=== PATIENT | female | born 1945 | race Caucasian/White ===

== ENCOUNTER 2025-03-12 13:18 | Inpatient (IN) | payer MEDICARE, OTHER, SELFPAY ==
[2025-03-11 15:00] VITALS: BP 126/74
[2025-03-11 15:03] VITALS: BP 126/74
[2025-03-11 15:04] VITALS: BMI 17.4
--- NOTE | 2025-03-11 15:16 | ED.GENMED ---
History of Present Illness
General
Chief Complaint: Failure to Thrive
Source: patient and ambulance crew
Exam Limitations: altered mental status
Time Seen by Provider: 03/11/25 15:05
Nursing documentation reviewed up to this point in time: agreed with
History of Present Illness
History of Present Illness:
Note:
CHIEF COMPLAINT(S)
Altered mental status.
HISTORY OF PRESENT ILLNESS
The patient is an 79-year-old female who was brought into the emergency department for altered mental status. Upon evaluation, she appeared disoriented regarding the month but was aware of the year and her location. It was noted that the patient has
difficulty communicating effectively. T There have been no reported falls, coughing, or significant changes in appetite. Her current living situation or whether she requires assistance with daily activities was not clearly established during the
conversation.
The patient did not mention specific precipitating events or factors exacerbating her symptoms, and there was no clear mention of interventions or medications taken prior to her arrival in the emergency department.
PHYSICAL EXAM
General: Alert, confused about the current month but oriented to year and location. No acute distress.
Skin: Warm, dry.
Head: Normocephalic, atraumatic.
Neck: Supple, trachea midline.
Ears, Nose, and Throat: Oral mucosa moist.
Cardiovascular: Normal peripheral perfusion, No edema. S1/S2, no S3/4, tachycardia
Respiratory: Respirations are non-labored.
Gastrointestinal: Abdomen nondistended.
Back: Normal range of motion, Normal alignment.
Musculoskeletal: no edema or deformities noted.
Neurological: Alert and oriented to year and place, but not month. No focal neurological deficits observed.
Psychiatric: Cooperative, appropriate mood & affect.
PROBLEM LIST
Acute Problems:
- Altered mental status
PLAN
The patient is to be admitted for further evaluation of her altered mental status. Investigations such as laboratory tests, imaging studies, and possibly consultation with neurology may be required to elucidate the cause of her symptoms and guide
treatment.
DIFFERENTIAL DIAGNOSIS
The Differential Diagnosis includes, in no particular order and is not limited to:
1. Delirium
2. Dementia exacerbation
3. Cerebrovascular accident
4. Electrolyte imbalance
5. Infection (e.g., urinary tract infection, respiratory infection)
6. Medication side effects or interactions
7. Dehydration
8. Cardiac event
Note:
CARE-UPDATE
03/11/25 - 17:26
Urinalysis results suggest a UTI, and the patient is deemed unsafe for discharge home. IV Ceftriaxone initiated. Anticipate need for placement in a rehabilitation facility post-hospitalization.
Disposition:
SUMMARY OF ENCOUNTER
The patient, an 79-year-old female, presented to the emergency department with altered mental status. She was disoriented regarding the current month but was oriented to the year and location. A urinalysis indicated a urinary tract infection (UTI).
Given the altered mental status and suspected UTI, the patient was deemed unsafe for discharge and required admission for further evaluation and management.
DISPOSITION
Admit to hospitalists.
ASSESSMENT
The patient presents with altered mental status, likely attributable to a urinary tract infection, as well as suspected evidence of failure to thrive.
EMERGENCY TREATMENTS ADMINISTERED
Intravenous Ceftriaxone was initiated for the treatment of UTI.
PLAN
The patient will be admitted for further evaluation and management. This may include additional laboratory tests, imaging studies, and consultations with specialists such as neurology or orthopedics to further understand the cause of altered mental
status.
MEDICATION RECONCILIATION
Ceftriaxone IV initiated for UTI treatment.
MEDICAL DECISION MAKING
-Complexity of Data Reviewed:
Acute conditions affecting care include altered mental status, UTI, and possible failure to thrive. The differential diagnosis includes delirium, dementia exacerbation, cerebrovascular accident, electrolyte imbalance, infection, medication side
effects or interactions, dehydration, and cardiac event.
-Data:
Category 3
Discussion of management with hospitalists for further patient care.
DIAGNOSIS
- Urinary tract infection: ICD-10 N39.0
- Altered mental status: ICD-10 R41.82
- Failure to thrive in adult: ICD-10 R62.7
Phy Exam
Physical Exam
Physical Exam:
.
Course
Orders/Labs/Results
Orders:
Orders
03/11/25 14:59
EKG [Electrocardiogram (*1)] Urgent
Reason for Study: Tachycardia
EKG- Treatment ONCE
03/11/25 15:00
Straight cath- Treatment ONCE
03/11/25 15:06
CBC/With Diff [Complete Blood Count/With Diff] Urgent
CMP [Comprehensive Metabolic Panel] Urgent
Urinalysis Reflex To Culture Urgent
Date Specimen was Collected: 03/11/25
Time Specimen was Collected: 14:59
Urine Microscopic Reflex Cult Urgent
Urine Culture Urgent
YUNIOR Source: U
Specimen Description:
Date Specimen was Collected: 03/11/25
Time Specimen was Collected: 14:59
03/11/25 15:14
Cardiac Monitoring- Treatment ONCE
IV Insert/Care/Rem.- Treatment PRN
Pulse Ox/cont/shift [RESP] Stat
Quantity: 1
03/11/25 15:15
CT Head W/o Iv Contrast Urgent
Comment:
Reason For Exam: confusion
Abnormal Lab Results
03/11/25
15:06
RBC 3.83 L 10^6/uL
(4.20-5.40)
MCV 106.0 H fL
(81.0-99.0)
MCH 34.5 H pg
(27.0-31.0)
MCHC 32.5 L g/dL
(33.0-37.0)
RDW 15.9 H %
(11.5-14.5)
Absolute Neuts (auto) 8.2 H 10^3/uL
(1.4-6.5)
Absolute Lymphs (auto) 0.9 L 10^3/uL
(1.2-3.4)
Absolute Monos (auto) 0.8 H 10^3/uL
(0.1-0.6)
Neutrophils % 80.6 H %
(42.2-75.2)
Lymphocytes % 9.0 L %
(20.5-51.1)
Glucose 108 H mg/dl
(70-99)
Total Bilirubin 1.4 H mg/dl
(0.2-1.3)
Urine Ketones 3+ A
(Negative)
Ur Occult Blood Reflex 3+ A
(Negative)
Leukocyte Esterase Rfl 3+ A
(Negative)
Urine Albumin (Reflex) 3+ A
(Neg - Trace)
03/11/25 15:06
03/11/25 15:06
Vital Signs
Initial and Last Documented VS:
Initial Vital Signs
Pulse Resp Pulse Ox
107 17 97
03/11/25 14:59 03/11/25 14:59 03/11/25 14:59
Last Documented Vital Signs
Temp Pulse Resp BP Pulse Ox
98.4 F 102 21 126/74 97
03/11/25 15:00 03/11/25 16:00 03/11/25 15:00 03/11/25 15:03 03/11/25 16:00
*Pulse Oximetry
SaO2: 97
Oxygen Mode of Delivery: Room air
Patient hypoxic: no
*Critical Care Note
Total Time (30-74mins, 75-104mins- exclusive of procedures): Not Applicable
ED Attending Note
-
Portions of this chart may have been created with voice recognition software.� Occasional wrong word or��sound alike� substitutions may have occurred due to the inherent limitations of voice recognition software.
Discharge Plan
Departure
Patient Disposition: Admit
Date of Disposition: 03/11/25
Time of Disposition: 17:25
Admit to: Med/Surg
Presentation/result/management discussed w/ accepting MD/DO: Hospitalist
Condition: Fair
Discharge Problem:
Acute UTI (urinary tract infection), Acute alteration in mental status, Failure to thrive in adult
Prescriptions:
No Action
levothyroxine 75 mcg tablet
75 mcg PO DAILY
rosuvastatin 5 mg tablet
5 mg PO DAILY
docusate sodium 100 mg Capsule
100 mg PO BID Qty: 1 0RF
polyethylene glycol 3350 [HealthyLax] 17 gram Powder In Packet
17 g PO DAILY Qty: 1 0RF
metoprolol succinate [Toprol XL] 25 mg tablet extended release 24 hr
25 mg PO DAILY Qty: 1 0RF
Rx Instructions:
new medication
Referrals:
Blanco Noriega MD [Family Provider, Family Practice]
Interventions
Interventions:
*Risk Screen - Suicide Last Done: 03/11/25 14:55
*General Assessment Last Done: 03/11/25 14:55
*Neglect/Abuse Screening Last Done: 03/11/25 14:55
*ED- Fall Risk Assessment Last Done: 03/11/25 14:55
*ED COVID-19 Vaccine History Last Done: 03/11/25 14:55
*ED Influenza Vaccine History Last Done: 03/11/25 14:55
Discharge Date and Time
Print Language: FRISIAN
[2025-03-11 15:44] LABS: ALT (SGPT) 18 U/L (0-35); AST (SGOT) 22 U/L (14-36); Albumin 4.0 g/dl (3.5-5.0); Alkaline Phosphatase 63 U/L (38-126); Blood Urea Nitrogen 17 mg/dl (7-17); Calcium 9.0 mg/dl (8.4-10.2); Carbon Dioxide 24 mmol/L (22-30); Chloride 104 mmol/L (98-107); Estimated Creatinine Clearance 42 ml/min; Glucose 108 mg/dl (70-99); Potassium 4.3 mmol/L (3.5-5.1); Sodium 138 mmol/L (135-145); Total Protein 6.8 g/dl (6.3-8.2); eGFR > 60.00
--- NOTE | 2025-03-11 15:51 | EDCM ---
Addendum entered by Tamika Spring 03/11/25 16:16:
I met with pt bedside in ED. She lives alone in [address]. First floor half bath, full flight to second floor bedroom and full bath.
Pt states she is independent in ADLs, personal care and ambulation. Denies assistive devices. She told me she prepares meals and her sister in law sends her food.
I spoke to pt's brother Scot, he and his live in [place]. Per Scot, pt was admitted 2 years ago and was sent to [facility] after discharge for STR. Was discharged home with private pay caregivers but pt fired them. Per Scot, his has
food delivered to the house, pt does not prepare food.
He was notified by [facility] that they do not feel she is safe at home alone.
He is hoping she will qualify for STR at [facility] again and hope to transition to LTC or Memory Care.
He is aware CM will continue to follow and will reach out as needed.
Original Note:
I received a phone call from Pepper from [facility], they did a home visit today and sent pt to hospital. Home conditions were poor and they do not feel she is safe to be home alone. They do have POA documents and capacity evaluation that
states she does not have capacity to make decisions. Her brother Terry is POA, he is in [place]. [facility] did notify him that pt was sent to ED. Will discuss with Dr Zabala.
[2025-03-11 16:04] LABS: Hematocrit 40.6 % (37.0-47.0); Hemoglobin 13.2 g/dL (12.0-16.0); Mean Corp Hgb Conc. 32.5 g/dL (33.0-37.0); Mean Corpuscular Volume 106.0 fL (81.0-99.0); Nucleated Red Blood Cells % 0 %; Platelet Count 240 10^3/uL (130-400); Red Cell Dist. Width 15.9 % (11.5-14.5)
[2025-03-11 16:21] LABS: Urine Character Slightly Cloudy (Clear)
--- NOTE | 2025-03-11 17:35 | HPS.HSE ---
Family Physician
-
Family Physician: Blanco Noriega
Chief Complaint
-
confusion
History of Present Illness
Ms. Ebony Madison is a 79 yo woman with hx hypothyroidism, HLD, presents to the ER after [facility] checked in on patient who was not answering calls.
Patient was admitted in December 2022 for failure to thrive, and poor oral intake with concern for cognitive impairment.
Patient isn't able to give significant history. She can't remember what was going on at home or what medications she takes. Per RN, she is having some incontinence which is new for her.
Medical History
Past Medical History
Past Medical History: Reports Hypercholesterolemia and Other
Additional Past Medical History:
Hypothyroidism
Past Surgical History: Reports Other
Additional Past Surgical History:
Rhinoplasty
Social History
Tobacco: Non-smoker
Alcohol: None
Family History
Family History: Not pertinent
Allergies / Home Medications
Allergies reflects when Allergies were last updated in [email or web address].
Home Medications with original date entered in [email or web address]
Allergy/Medication List:
*unable to confirm med rec
Review of Systems
-
History Source: Patient
A 12 point ROS was completed and negative except as noted: Yes
Physical Exam
Vital Signs
Vital Signs
Temp Pulse Resp BP Pulse Ox
98.4 F 102 21 126/74 97
03/11/25 15:00 03/11/25 16:00 03/11/25 15:00 03/11/25 15:03 03/11/25 16:00
Physical Exam
General: No Apparent Distress and Other (frail appearing)
HEENT: PERRLA
Respiratory: Clear; No Wheezes
Cardiac: S1/S2 and Regular Rhythm
GI: Soft, Non Tender and Non Distended
Musculoskeletal: No Edema
Skin: Warm and Dry; No Rash
Neuro: AO x 3
Psych: Calm
Laboratory Results
-
03/11/25 15:06
03/11/25 15:06
Laboratory Results
Total Bilirubin 1.4 mg/dl (0.2-1.3) H 03/11/25 15:06
AST 22 U/L (14-36) 03/11/25 15:06
ALT 18 U/L (0-35) 03/11/25 15:06
Alkaline Phosphatase 63 U/L (38-126) 03/11/25 15:06
Data Reviewed
-
Diagnostic Radiology: Report Reviewed by me
Lab Data: Labs Reviewed by me
Impression/Plan
-
Ms. Ebony Madison is a 79 yo woman with hx hypothyroidism, HLD, presents to the ER after area agency of [employer] checked in on patient who was not answering calls.
Triage VS: T 98.4, P 107, RR 17, SpO2 97%
LABS: WBC 10.2, Hg 13.2, PLT 240, Na 138, K+ 4.3, Cl 104, Cr 0.7, Glucose 108
UA with 3 + leuk esterase, 60-[address]
IMPRESSION:
1. No CT evidence for acute intracranial hemorrhage or transcortical infarct.
2. Moderate bilateral temporal lobe volume loss consistent with a chronic neurodegenerative disease (probably Alzheimer's dementia).
3. 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
4. 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
5. Chronic left maxillary sinusitis.
MAR: IV Ceftriaxone
TME 2/2 UTI
-patient with confusion and new urinary symptoms with UA showing inflammation
-admit for treatment of UTI
-IV Ceftriaxone
-follow up urine culture
Hx Cognitive Decline with imaging suggestive of Alzheimer's dementia
-patient lives alone, brother lives 6 hours away
-PT Eval
-CM consult
Hypothyroidism
Hyperlipidemia
unable to complete med rec. Patient states she takes all of her medications int he morning. Med rec to be completed by pharmacist in AM.
DVT PPx SCD
FULL CODE
[2025-03-11 17:41] LABS: Urine Squamous Cell 0-2 /LPF (Few)
[2025-03-11 17:42] LABS: Urine White Cell 60-70 /HPF (0-5)
[2025-03-11] MEDS: ROCEPHIN 1000 MG IV (17:51)
[2025-03-11 19:00] LABS: COVID-19 Antigen Negative (Negative)
[2025-03-11 20:38] VITALS: BP 140/84; BMI 15.6
[2025-03-11 23:31] VITALS: BP 122/72
[2025-03-12 07:15] VITALS: BP 126/78
[2025-03-12 07:45] LABS: Hematocrit 38.9 % (37.0-47.0); Hemoglobin 12.7 g/dL (12.0-16.0); Mean Corp Hgb Conc. 32.6 g/dL (33.0-37.0); Mean Corpuscular Volume 106.6 fL (81.0-99.0); Platelet Count 239 10^3/uL (130-400); Red Cell Dist. Width 15.9 % (11.5-14.5)
[2025-03-12 08:15] LABS: Blood Urea Nitrogen 16 mg/dl (7-17); Calcium 9.3 mg/dl (8.4-10.2); Carbon Dioxide 26 mmol/L (22-30); Chloride 104 mmol/L (98-107); Estimated Creatinine Clearance 39 ml/min; Glucose 112 mg/dl (70-99); Magnesium 2.1 mg/dl (1.6-2.3); Potassium 4.7 mmol/L (3.5-5.1); Sodium 139 mmol/L (135-145); eGFR > 60.00
[2025-03-12 10:35] VITALS: BP 120/78; PULSE 92; O2SAT 96
[2025-03-12 10:52] VITALS: BP 120/78; PULSE 91; O2SAT 97
[2025-03-12 11:02] VITALS: BMI 15.6
--- NOTE | 2025-03-12 11:33 | W.PN.HOSP.TC ---
Addendum entered and electronically signed by Keny Roberts MD 03/12/25 13:04:
Patient brother was updated over the phone in details.
Original Note:
Today's Communication/Plan
-
IV antibiotics
PT OT eval
Spine imaging
Hip imaging
Eventual placement
Assessment / Plan
Assessment / Plan
General: No Apparent Distress and Other (frail appearing)
HEENT: PERRLA
Respiratory: Clear; No Wheezes
Cardiac: S1/S2 and Regular Rhythm
GI: Soft, Non Tender and Non Distended
Musculoskeletal: No Edema
Skin: Warm and Dry; No Rash
Neuro: AO x 3
Psych: Calm
TME 2/2 UTI
-patient with confusion and new urinary symptoms with UA showing inflammation
-IV Ceftriaxone
-follow up urine culture
Hx Cognitive Decline with imaging suggestive of Alzheimer's dementia
-patient lives alone, brother lives 6 hours away
-OT eval BCAT score 14
-CM consult
Mechanical fall
- Check thoracic and lumbar spine.
-Check bilateral hip and pelvic x-ray
Hypothyroidism
-check TSH
Hyperlipidemia
Suspected protein caloric malnutrition likely chronic
- Nutrition eval. Check magnesium, phosphorus, B12 and folic acid and thyroid level
DVT PPx heparin subcu
FULL CODE
Anticipated Discharge: > 48 hours
Subjective/Interval History
-
Date of Service: March 12, 2025
Patient knew she was in the outside hospital. However unclear about timeline
Denied any pain to me
However after working with physical therapy patient was stating of back pain after a fall
Objective Data
-
Labs:
Laboratory Results
03/12/25
06:58
WBC 7.8
Hgb 12.7
Hct 38.9
Plt Count 239
Sodium 139
Potassium 4.7
Chloride 104
Carbon Dioxide 26
BUN 16
Creatinine 0.7
Glucose 112 H
Calcium 9.3
Vital Signs:
Vital Signs
Temp Pulse Resp BP Pulse Ox
98.5 F 89 16 126/78 97
03/12/25 07:15 03/12/25 07:15 03/12/25 07:15 03/12/25 07:15 03/12/25 08:30
I&O
03/11/25 03/12/25 03/13/25
06:59 06:59 06:59
Intake Total 0 / 0
Balance 0 / 0
Data Reviewed
-
Total Time Spent with Patient (in minutes): 55
--- NOTE | 2025-03-12 12:49 | CM ---
Addendum entered by Shahrzad Samayoa 03/12/25 14:01:
Status Changed from OBS to Inpatient. Brother contacted and reviewed the IMM with CM,; placed in pt chart.
Original Note:
DARLENE presented to the son over the phone. He had questions, which were answered to his satisfaction. Signed copy placed in chart. Brother lives in [place], [place]. DARLENE emailed to [email or web address]
Pt is reported to have intermittent periods of forgetfulness.
PT rec SNF, brother made aware. Brother provided [facility] for referral. CM explained that we would like 3-5 choices so discharge can be completed in a timely manner when stable. Referral made
Plan: Snf when stable
[2025-03-12 15:30] VITALS: BP 123/77
[2025-03-12] MEDS: ROCEPHIN 1000 MG IV (16:26)
[2025-03-12] MEDS: STERILE WATER FOR INJECTION 10 ML IV (16:26)
[2025-03-12] MEDS: HEPARIN SC (20:41)
[2025-03-12 23:02] VITALS: BP 116/67
[2025-03-13 07:00] VITALS: BP 109/70
[2025-03-13 07:16] LABS: Hematocrit 39.3 % (37.0-47.0); Hemoglobin 12.3 g/dL (12.0-16.0); Mean Corp Hgb Conc. 31.3 g/dL (33.0-37.0); Mean Corpuscular Volume 106.2 fL (81.0-99.0); Nucleated Red Blood Cells % 0 %; Platelet Count 237 10^3/uL (130-400); Red Cell Dist. Width 16.2 % (11.5-14.5)
[2025-03-13 07:31] LABS: Blood Urea Nitrogen 16 mg/dl (7-17); Calcium 9.5 mg/dl (8.4-10.2); Carbon Dioxide 30 mmol/L (22-30); Chloride 105 mmol/L (98-107); Estimated Creatinine Clearance 34 ml/min; Glucose 108 mg/dl (70-99); Magnesium 2.2 mg/dl (1.6-2.3); Potassium 4.3 mmol/L (3.5-5.1); Sodium 137 mmol/L (135-145); eGFR > 60.00
[2025-03-13 08:38] LABS: Folate 12.7 ng/ml (2.76-20); Vitamin B12 692 pg/ml (239-931)
[2025-03-13] MEDS: TYLENOL 650 MG PO (09:12)
[2025-03-13] MEDS: HEPARIN SC ×2 (09:13→19:58)
--- NOTE | 2025-03-13 11:04 | CM ---
CM spoke with patient's primary contact/brother, Terry Nation, via phone. SNF preference is [facility]; referral was accepted.
Plan: Discharge to SNF when medically stable
--- NOTE | 2025-03-13 11:55 | W.PN.HOSP.TC ---
Today's Communication/Plan
-
Change antibiotics and monitor
Start Synthroid
Await placement
Assessment / Plan
Assessment / Plan
General: No Apparent Distress and Other (frail appearing)
HEENT: PERRLA
Respiratory: Clear; No Wheezes
Cardiac: S1/S2 and Regular Rhythm
GI: Soft, Non Tender and Non Distended
Musculoskeletal: No Edema
Skin: Warm and Dry; No Rash
Neuro: AO x 3
Psych: Calm
TME 2/2 Pseudomonas urinary tract infection
-patient with confusion and new urinary symptoms with UA showing inflammation
- Identification and susceptibility noted. DC ceftriaxone start ciprofloxacin
-complete finite course
Hx Cognitive Decline with imaging suggestive of Alzheimer's dementia
-patient lives alone, brother lives 6 hours away
-OT eval BCAT score 14
-CM consult
Mechanical fall
-Chronic compression deformity T10 and age-indeterminate fracture T6
-Hip x-ray negative for fracture.
-Lumbar spine negative for fractures
Hypothyroidism
- Doubt patient was taking her medications. Patient with history of sinus tachycardia. TSH was extremely elevated. Start patient on Synthroid 50 mcg and repeat blood work 4 to 6 weeks as outpatient.
Hyperlipidemia
Suspected protein caloric malnutrition likely chronic
- Nutrition eval. mag, Phos, B12 and folate normal.
DVT PPx heparin subcu
FULL CODE
PT/OT rec SNF await placement
Anticipated Discharge: Within 24 hours
Subjective/Interval History
-
Date of Service: March 13, 2025
eating breakfast
states of back pain after working with PT
Objective Data
-
Labs:
Laboratory Results
03/13/25
06:04
WBC 5.5
Hgb 12.3
Hct 39.3
Plt Count 237
Sodium 137
Potassium 4.3
Chloride 105
Carbon Dioxide 30
BUN 16
Creatinine 0.8
Glucose 108 H
Calcium 9.5
Vital Signs:
Vital Signs
Temp Pulse Resp BP Pulse Ox
98.3 F 86 12 109/70 98
03/13/25 07:00 03/13/25 07:00 03/13/25 07:00 03/13/25 07:00 03/13/25 09:25
I&O
03/12/25 03/13/25 03/14/25
06:59 06:59 06:59
Intake Total 0 / 0 960 / 960 180 / 180
Balance 0 / 0 960 / 960 180 / 180
Data Reviewed
-
Total Time Spent with Patient (in minutes): 55
[2025-03-13] MEDS: CIPRO 500 MG PO ×2 (12:10→19:58)
[2025-03-13 15:00] VITALS: BP 105/71
[2025-03-13 23:53] VITALS: BP 146/89
[2025-03-14] MEDS: SYNTHROID 50 MCG PO (06:22)
[2025-03-14 07:00] VITALS: BP 90/61
[2025-03-14 07:16] LABS: Hematocrit 34.7 % (37.0-47.0); Hemoglobin 11.4 g/dL (12.0-16.0); Mean Corp Hgb Conc. 32.9 g/dL (33.0-37.0); Mean Corpuscular Volume 103.3 fL (81.0-99.0); Nucleated Red Blood Cells % 0 %; Platelet Count 231 10^3/uL (130-400); Red Cell Dist. Width 15.9 % (11.5-14.5)
[2025-03-14 07:30] LABS: Blood Urea Nitrogen 19 mg/dl (7-17); Calcium 9.4 mg/dl (8.4-10.2); Carbon Dioxide 26 mmol/L (22-30); Chloride 108 mmol/L (98-107); Estimated Creatinine Clearance 39 ml/min; Glucose 99 mg/dl (70-99); Potassium 4.5 mmol/L (3.5-5.1); Sodium 137 mmol/L (135-145); eGFR > 60.00
[2025-03-14 09:32] VITALS: BP 119/73
[2025-03-14] MEDS: CIPRO 500 MG PO ×2 (09:33→20:11)
[2025-03-14] MEDS: HEPARIN 5000 UNITS SC ×2 (09:36→20:11)
--- NOTE | 2025-03-14 11:10 | W.PN.HOSP.TC ---
Today's Communication/Plan
-
po abx
monitor BP
Bowel regimen if needed
start dispo to SNF
Assessment / Plan
Assessment / Plan
General: No Apparent Distress and Other (frail appearing)
HEENT: PERRLA
Respiratory: Clear; No Wheezes
Cardiac: S1/S2 and Regular Rhythm
GI: Soft, Non Tender and Non Distended
Musculoskeletal: No Edema
Skin: Warm and Dry; No Rash
Neuro: AO x 3
Psych: Calm
TME 2/2 Pseudomonas urinary tract infection
-patient with confusion and new urinary symptoms with UA showing inflammation
- Identification and susceptibility noted. DC ceftriaxone start ciprofloxacin
-complete finite course
Hx Cognitive Decline with imaging suggestive of Alzheimer's dementia
-patient lives alone, brother lives 6 hours away
-OT eval BCAT score
-CM consult
Mechanical fall
-Chronic compression deformity T10 and age-indeterminate fracture T6
-Hip x-ray negative for fracture.
-Lumbar spine negative for fractures
Hypothyroidism
- Doubt patient was taking her medications. Patient with history of sinus tachycardia. TSH was extremely elevated. Start patient on Synthroid 50 mcg and repeat blood work 4 to 6 weeks as outpatient.
Hyperlipidemia
Suspected protein caloric malnutrition likely chronic
- Nutrition eval. mag, Phos, B12 and folate normal.
Hx of sinus tachycardia
-BP soft at times. If persisent sinus tach noted- can start low dose toprol
DVT PPx heparin subcu
FULL CODE
PT/OT rec SNF await placement.
unable to confirm home meds.
Anticipated Discharge: Within 24 hours
Subjective/Interval History
-
Date of Service: March 14, 2025
BP was low this morning-pt not complaining of lightheadedness or dizziness
Objective Data
-
Labs:
Laboratory Results
03/14/25
06:04
WBC 4.9
Hgb 11.4 L
Hct 34.7 L
Plt Count 231
Sodium 137
Potassium 4.5
Chloride 108 H
Carbon Dioxide 26
BUN 19 H
Creatinine 0.7
Glucose 99
Calcium 9.4
Vital Signs:
Vital Signs
Temp Pulse Resp BP Pulse Ox
98.4 F 96 16 119/73 100
03/14/25 07:00 03/14/25 09:32 03/14/25 07:00 03/14/25 09:32 03/14/25 07:00
I&O
03/13/25 03/14/25 03/15/25
06:59 06:59 06:59
Intake Total 960 / 960 360 / 360
Balance 960 / 960 360 / 360
[2025-03-14 15:00] VITALS: BP 112/88
[2025-03-14 23:37] VITALS: BP 112/67
[2025-03-15] MEDS: SYNTHROID 50 MCG PO (06:14)
[2025-03-15 07:15] VITALS: BP 106/54
[2025-03-15 07:55] LABS: Hematocrit 34.6 % (37.0-47.0); Hemoglobin 11.4 g/dL (12.0-16.0); Mean Corp Hgb Conc. 32.9 g/dL (33.0-37.0); Mean Corpuscular Volume 107.1 fL (81.0-99.0); Nucleated Red Blood Cells % 0 %; Platelet Count 250 10^3/uL (130-400); Red Cell Dist. Width 15.9 % (11.5-14.5)
[2025-03-15 08:21] LABS: Blood Urea Nitrogen 15 mg/dl (7-17); Calcium 9.4 mg/dl (8.4-10.2); Carbon Dioxide 29 mmol/L (22-30); Chloride 107 mmol/L (98-107); Estimated Creatinine Clearance 39 ml/min; Glucose 98 mg/dl (70-99); Potassium 4.7 mmol/L (3.5-5.1); Sodium 136 mmol/L (135-145); eGFR > 60.00
[2025-03-15] MEDS: HEPARIN 5000 UNITS SC (08:52)
[2025-03-15] MEDS: CIPRO 500 MG PO (08:52)
[2025-03-15] MEDS: MIRALAX 17 GRAMS PO (08:55)
--- NOTE | 2025-03-15 09:08 | PN.CDI ---
CDI
- -
CDI:
Physician Documentation Request
Admit Date: 03/12/25 13:18
Dear Doctor Armando,
Please review the following and provide your response in the progress notes.
Clinical Indicators:
Documentation includes the diagnosis of malnutrition.
Other clinical indicators are:
Multiple Needle Stitcher, 03/12
#...wt: CBW 85lb 3oz (BMI 15.6 underweight) 03/11.
#...observed with orbital hollowness, protruding clavicle, losses around interosseous,
#...and buccal area.
#...meeting ASPEN and AND criteria for moderate protein calorie malnutrition
#...of chronic illness
PN, 03/14
#Suspected protein caloric malnutrition likely chronic
To ensure the quality of the medical record, based on the above information and the recognized standards for malnutrition, please verify which of the following responses best reflects the patient's nutritional status(acuity and observed physical
features...):
Moderate Protein Calorie Malnutrition of chornic illness is/was present and is a clinical diagnosis (please provide additional support in the medical record)
Other level of malnutrition is present (Mild, Moderate or Severe)
Other (please specify)
[place] Criteria (ACP Hospitalist 2017)
2 or more criteria must be present for either
non severe or severe malnutrition
Note that the criteria differs related to the
presence of an acute or chronic illness
Chronic Illness
Energy Intake Non Severe: <75% for >1 month
Severe: <75% for >1 month
Weight Loss Non Severe: 5% over 1 month
7.5% over 3 months
10% over 6 months
20% over 1 year
Severe: >5% over 1 month
>7.5% over 3 months
>10% over 6 months
>20% over 1 year
Body Fat Non Severe: Mild Loss
Severe: Severe Loss
Muscle Mass Non Severe: Mild Loss
Severe: Severe Loss
Use of terms such as suspected, likely, concern for, or probable (associated with a specific diagnosis that is being evaluated, monitored, or treated as if it exists) are acceptable and can be coded in the inpatient setting, when documented at the
time of discharge.
Thank you,
Prisca Romo RN BSN CCDS
CDI Specialist
Please contact via tiger text
Please use your independent medical judgment in providing your response.
[2025-03-15 10:51] VITALS: BP 113/57; PULSE 97; O2SAT 98
--- NOTE | 2025-03-15 11:24 | W.PN.HOSP.TC ---
Today's Communication/Plan
-
dc to snf
po abx-complete finite course
Assessment / Plan
Assessment / Plan
General: No Apparent Distress and Other (frail appearing)
HEENT: PERRLA
Respiratory: Clear; No Wheezes
Cardiac: S1/S2 and Regular Rhythm
GI: Soft, Non Tender and Non Distended
Musculoskeletal: No Edema
Skin: Warm and Dry; No Rash
Neuro: AO x 3
Psych: Calm
TME 2/2 Pseudomonas urinary tract infection
-patient with confusion and new urinary symptoms with UA showing inflammation
- Identification and susceptibility noted. DC ceftriaxone start ciprofloxacin
-complete finite course
Hx Cognitive Decline with imaging suggestive of Alzheimer's dementia
-OT eval BCAT score 14
-CM consult
Mechanical fall
-Chronic compression deformity T10 and age-indeterminate fracture T6
-Hip x-ray negative for fracture.
-Lumbar spine negative for fractures
Hypothyroidism
- Doubt patient was taking her medications. Patient with history of sinus tachycardia. TSH was extremely elevated. Start patient on Synthroid 50 mcg and repeat blood work 4 to 6 weeks as outpatient.
Hyperlipidemia
Moderate protein caloric malnutrition of chronic illness
- Nutrition eval. mag, Phos, B12 and folate normal.
Hx of sinus tachycardia
-BP soft at times. If persisent sinus tach noted- can start low dose toprol. HR stable currently.
DVT PPx heparin subcu
FULL CODE
PT/OT rec SNF await placement.
unable to confirm home meds.
More than 30 minutes spent in discharge including
Final examination of the patient
Summarizing hospital stay
Instructions for continuing care to all relevant caregivers
Preparation of discharge records, prescriptions, and referral forms
Total time spent (in minutes): 52
Anticipated Discharge: Today
Subjective/Interval History
-
Date of Service: March 15, 2025
sitting in chair
denies any dysuria or lightheadedness
Objective Data
-
Labs:
Laboratory Results
03/15/25
07:06
WBC 4.4 L
Hgb 11.4 L
Hct 34.6 L
Plt Count 250
Sodium 136
Potassium 4.7
Chloride 107
Carbon Dioxide 29
BUN 15
Creatinine 0.7
Glucose 98
Calcium 9.4
Vital Signs:
Vital Signs
Temp Pulse Resp BP Pulse Ox
98.6 F 83 18 106/54 97
03/15/25 07:15 03/15/25 07:15 03/15/25 07:15 03/15/25 07:15 03/15/25 07:15
I&O
03/14/25 03/15/25 03/16/25
06:59 06:59 06:59
Intake Total 360 / 360 660 / 660
Balance 360 / 360 660 / 660
--- NOTE | 2025-03-15 11:25 | W.DCSUMMARY ---
Discharge Summary
Discharge Data
Date of Admission: 03/12/25
Date of Discharge: 03/15/25
-
Pending Results: No
Hospital Course
79-year-old female past medical history of sinus tachycardia, protein caloric malnutrition, hypothyroidism, cognitive impairment is presenting to the ER after [facility] [employer] checked in on patient who was not answering calls. Patient poor
historian. Patient was found to urinary tract infection. Patient was on IV ceftriaxone. Urine culture with Pseudomonas and antibiotics was adjusted to ciprofloxacin. Patient with significantly elevated TSH and was started on Synthroid. Unclear
patient compliance of medications at home. Patient blood pressure was well-controlled. Patient heart rate was well-controlled. In the past patient used to be on Toprol which was not restarted as patient with well-controlled blood pressure and
heart rate. Patient was tolerating diet. Patient was seen by physical and Occupational Therapy with plan to discharge to custodial facility.
Discharge Plan
-
Patient Disposition: Usp/SNF
Discharge Diagnosis/Procedures: Toxic metabolic encephalopathy likely secondary to Pseudomonas urinary tract infection
Mechanical fall
Subclinical hypothyroidism
Diet: Regular
Activity: With assistance and As tolerated
Driving Restrictions: No driving
Blood Work: Thyroid function testing in 4 to 6 weeks via primary doctor
Referrals:
Blanco Noriega MD [Family Provider, Family Practice] - in less than 1 week
Prescriptions:
New
levothyroxine 50 mcg Tablet
50 mcg PO DAILY @ 0600 Qty: 30 0RF
ciprofloxacin HCl 500 mg Tablet
500 mg PO BID Qty: 2 0RF
sennosides-docusate sodium [Senna Plus] 8.6-50 mg Tablet
1 tab PO BID Qty: 20 0RF
Discontinued
levothyroxine 75 mcg tablet
75 mcg PO DAILY
rosuvastatin 5 mg tablet
5 mg PO DAILY
polyethylene glycol 3350 [HealthyLax] 17 gram powder in packet
17 g PO DAILY
docusate sodium 100 mg capsule
100 mg PO BID
metoprolol succinate [Toprol XL] 25 mg tablet extended release 24 hr
25 mg PO DAILY
Rx Instructions:
new medication
Discharge Date and Time
Print Language: CHINESE
--- NOTE | 2025-03-15 12:46 | CM ---
Discharged to [facility]. Bed is available today. Alexi larry
report: [phone]
fax: [phone]
[2025-03-15 15:15] VITALS: BP 140/76
[2025-03-15 17:15] VITALS: BP 140/76
--- NOTE | 2025-03-15 17:44 | CM ---
Discharge to [facility] for Rehab via Ambulance. Updated clinicals sent. [facility] contacted to obtain status update. Informed them of dc to [facility]
report: [phone]
fax: [phone]
== END 2025-03-15 19:15 | DRG 689 ==
LOC: 4 EAST ACU 13:18
PROVIDERS: ADMITTING PHYSICIAN Student in an Organized Health Care Education/Training Program; ATTENDING PHYSICIAN Hospitalist; EMERGENCY PHYSICIAN Emergency Medicine; FAMILY PHYSICIAN Family Medicine
DX: N39.0 Urinary tract infection, site not specified (principal); G92.8 Other toxic encephalopathy; E44.0 Moderate protein-calorie malnutrition; B96.5 Pseudomonas (aeruginosa) (mallei) (pseudomallei) as the cause of diseases classified elsewhere; W19.XXXA Unspecified fall, initial encounter; E03.8 Other specified hypothyroidism; Z11.52 Encounter for screening for COVID-19; G30.9 Alzheimer's disease, unspecified; F02.80 Dementia in other diseases classified elsewhere, unspecified severity, without behavioral disturbance, psychotic disturbance, mood disturbance, and anxiety; E78.00 Pure hypercholesterolemia, unspecified; J32.0 Chronic maxillary sinusitis; Z79.899 Other long term (current) drug therapy; Z86.73 Personal history of transient ischemic attack (TIA), and cerebral infarction without residual deficits
CPT/HCPCS: 51701; 70450; 72072; 72100; 73523; 80048; 80053; 81003; 81015; 82607; 82746; 83735; 84100; 84439; 84443; 85025; 85027; 87077; 87086; 87186; 87811; 93005; 94760; 96374; 97116; 97163; 97167; 97535; 99285